=== PATIENT | female | born 1960 | race Two or more races ===

== ENCOUNTER 2025-06-13 11:54 | Emergency (ER) | payer BC, MEDICARE ==
[~2025-06-13] VITALS: Ht 157.5 cm; Wt 79.4 kg
[2025-06-13 12:15] VITALS: TEMP 98.1
[2025-06-13 12:30] LABS: PLATELET COUNT (AUTO) 250 K/uL (150-450); RED BLOOD CELL COUNT(AUTO) 5.00 MIL/uL (4.0-5.2); RED CELL DISTRIBUTION WIDTH 13.8 % (11.5-15.0); WHITE BLOOD COUNT (AUTO) 5.6 K/uL (4.3-11.0)
[2025-06-13] MEDS ORDERED: LABETALOL 20 MG/4 ML VIAL ONE (12:31)
[2025-06-13 12:38] LABS: CALCIUM, SERUM 9.0 mg/dL (8.5-10.1); CREATININE 0.6 mg/dL (0.6-1.3); SODIUM SERUM 139.0 mmol/L (136-145); UREA NITROGEN, BLOOD 16.0 mg/dL (7-18)
[2025-06-13] MEDS: LABETALOL HCL IV 100MG VIAL IV ONE (12:38)
[2025-06-13 13:13] VITALS: BP 136/90; O2SAT 98
== END 2025-06-13 13:20 | disposition home or self-care (01) ==
LOC: ER 12:08
DX: I10 Essential (primary) hypertension (principal); Z79.899 Other long term (current) drug therapy
CPT/HCPCS: 36415; 80048-TC; 84484-TC; 85025-TC; J3490

== ENCOUNTER 2025-07-08 14:29 | Emergency (ER) | payer BC ==
[~2025-07-08] VITALS: Ht 154.9 cm; Wt 68.0 kg
[2025-07-08] MEDS ORDERED: IBUPROFEN 600 MG TABLET ONE (15:51)
[2025-07-08] MEDS ORDERED: ACETAMINOPHEN ES 500 MG TABLET ONE (15:51)
[2025-07-08] MEDS: IBUPROFEN 600 MG TABLET PO ONE (16:07)
[2025-07-08] MEDS: ACETAMINOPHEN ES 500 MG TABLET PO ONE (16:08)
[2025-07-08 16:21] LABS: PLATELET COUNT (AUTO) 280 K/uL (150-450); RED BLOOD CELL COUNT(AUTO) 4.85 MIL/uL (4.0-5.2); RED CELL DISTRIBUTION WIDTH 13.9 % (11.5-15.0); WHITE BLOOD COUNT (AUTO) 8.3 K/uL (4.3-11.0)
[2025-07-08 16:25] LABS: CALCIUM, SERUM 9.2 mg/dL (8.5-10.1); CREATININE 0.5 mg/dL (0.6-1.3); SODIUM SERUM 142.0 mmol/L (136-145); UREA NITROGEN, BLOOD 21.0 mg/dL (7-18)
[2025-07-08 16:32] LABS: ASPARTATE AMINOTRANSFERASE 17.0 U/L (15-37); TOTAL PROTEIN, SERUM 7.9 g/dL (6.4-8.2)
[2025-07-08 16:42] LABS: INR 0.98 (0.91-1.10)
[2025-07-08] MEDS ORDERED: IBUP-1490 PO (16:55)
[2025-07-08 17:15] VITALS: BP 135/82; TEMP 98.2; O2SAT 97
== END 2025-07-08 17:16 | disposition home or self-care (01) ==
LOC: ER 14:32
DX: S16.1XXA Strain of muscle, fascia and tendon at neck level, initial encounter (principal); M54.50 Low back pain, unspecified; I10 Essential (primary) hypertension; E86.0 Dehydration; Z86.2 Personal history of diseases of the blood and blood-forming organs and certain disorders involving the immune mechanism; V43.52XA Car driver injured in collision with other type car in traffic accident, initial encounter; Y93.89 Activity, other specified; Y92.410 Unspecified street and highway as the place of occurrence of the external cause; Y99.8 Other external cause status
CPT/HCPCS: 36415; 70450-TC; 71045-TC; 72125-TC; 72131-TC; 80048-TC; 80076-TC; 85025-TC; 85730-TC